=== PATIENT | male | born 1960 | race Caucasian/White ===

== ENCOUNTER 2019-09-14 08:10 | Day surgery (SDC) | payer OTHER ==
[~2019-09-14] VITALS: Ht 175.3 cm; Wt 114.5 kg
[~2019-09-14 08:10] MED LIST: ASPI81CH PO
--- NOTE | 2019-09-14 09:18 | NUR ---
Ambulatory in Day Surgery. History, Chart, Medications and Allergies reviewed before start of procedure. Lungs clear T/O to Auscultation. Patient States Post-Procedure ride home has been arranged. Pre-Op teaching done. Pt verbalizes understanding.
--- NOTE | 2019-09-14 09:59 | NUR ---
09/14/19 0959 Ned Jay History, Chart, Medications and Allergies reviewed before start of procedure.MONITOR INTACT WITH CONTINUOUS PULSE OXIMETRY AND INTERMITTENT BP.3-LEAD EKG REVIEWED WITH PHYSICIAN PRIOR TO START OF PROCEDURE.O2 VIA N/C INTACT THROUGHOUT SEDATION/PROCEDURE. See Anesthesia record.
--- NOTE | 2019-09-14 10:29 | NUR ---
PT REPORT FROM THUY MICHELE RN.
--- NOTE | 2019-09-14 10:55 | NUR ---
Patient up to Ambulate independently. Gait steady. Discharge instructions reviewed with patient. Patient verbalizes understanding. Copy given to patient to take home. Patient States Post-Procedure ride home has been arranged. Discharged via wheelchair to private car for ride home. ALL BELONINGS RETURNED TO PATIENT. PT TAKEN TO [facility] TO SET UP PORTAL.
== END 2019-09-14 22:46 | disposition home or self-care (01) ==
LOC: ORSCMMR 08:10 → ORD 11:15 → ORSCMMR 22:46
PROVIDERS: Internal Medicine Gastroenterology
PROC: 0DB68ZX Excision of Stomach, Via Natural or Artificial Opening Endoscopic, Diagnostic (ICD-10-PCS; principal; 2019-09-14 09:30)
PROC: 0D758ZZ Dilation of Esophagus, Via Natural or Artificial Opening Endoscopic (ICD-10-PCS; principal; 2019-09-14 09:30)
PROC: 0DB98ZX Excision of Duodenum, Via Natural or Artificial Opening Endoscopic, Diagnostic (ICD-10-PCS; principal; 2019-09-14 09:30)
PROC: 0DB58ZX Excision of Esophagus, Via Natural or Artificial Opening Endoscopic, Diagnostic (ICD-10-PCS; principal; 2019-09-14 09:30)
DX: R13.10 Dysphagia, unspecified (principal); K21.9 Gastro-esophageal reflux disease without esophagitis; K44.9 Diaphragmatic hernia without obstruction or gangrene; E66.01 Morbid (severe) obesity due to excess calories; Z68.37 Body mass index [BMI] 37.0-37.9, adult
CPT/HCPCS: 88305; 88342; J2250; J2704; J7120

== ENCOUNTER 2020-06-05 07:42 | Day surgery (SDC) | payer OTHER ==
[~2020-06-05 07:42] MED LIST changes: +HYDCHL25 PO; +LATA.005SO
--- NOTE | 2020-06-05 08:54 | NUR ---
06/05/20 0854 Delia Ca PT WITH GOLD BAND ON LEFT RING FINGER, UNABLE TO REMOVE AT THIS TIME. EXPLAINED TO PATIENT RISKS OF HAVING RING ON, CONSENT SIGNED, QUESTIONS ANSWERED.
== END 2020-06-05 10:32 | disposition home or self-care (01) ==
LOC: ORSCSDS 07:42
PROVIDERS: Ophthalmology
PROC: 080PXZZ Alteration of Left Upper Eyelid, External Approach (ICD-10-PCS; principal; 2020-06-05 09:15)
PROC: 080NXZZ Alteration of Right Upper Eyelid, External Approach (ICD-10-PCS; principal; 2020-06-05 09:15)
DX: H02.831 Dermatochalasis of right upper eyelid (principal); H02.834 Dermatochalasis of left upper eyelid; I10 Essential (primary) hypertension; K21.9 Gastro-esophageal reflux disease without esophagitis; E66.01 Morbid (severe) obesity due to excess calories; Z68.37 Body mass index [BMI] 37.0-37.9, adult; Z79.899 Other long term (current) drug therapy
CPT/HCPCS: A9270; J2704; J7040

== ENCOUNTER 2024-04-23 03:37 | Observation (INO) | payer OTHER ==
[~2024-04-23] VITALS: Ht 177.8 cm; Wt 99.0 kg
[2024-04-23 03:50] LABS: BASOPHILS ABSOLUTE AUTO 0.05 K/mm3 (0.00-0.23); BASOPHILS PERCENT AUTO 1 % (0-2); EOSINOPHILS ABSOLUTE AUTO 0.26 K/mm3 (0.00-0.68); EOSINOPHILS PERCENT AUTO 4 % (0-6); Hematocrit 43.4 % (37.0-53.0); Hemoglobin 14.5 g/dL (13.5-17.5); IMMATURE GRAN ABSOLUTE AUTO 0.01 K/mm3 (0.00-0.10); IMMATURE GRAN PERCENT AUTO 0 % (0-1); LYMPHOCYTES ABSOLUTE AUTO 1.84 K/mm3 (0.84-5.20); LYMPHOCYTES PERCENT AUTO 25 % (21-46); MONOCYTES ABSOLUTE AUTO 0.66 K/mm3 (0.16-1.47); MONOCYTES PERCENT AUTO 9 % (4-13); Mean Corpuscular HGB 30.3 pg (26.0-34.0); Mean Corpuscular HGB Conc 33.4 g/dL (31.5-36.5); Mean Corpuscular Volume 91 fL (80-100); Mean Platelet Volume 9.8 fL (9.1-12.4); NEUTROPHILS ABSOLUTE AUTO 4.63 K/mm3 (1.96-9.15); NEUTROPHILS PERCENT AUTO 62 % (41-73); Platelet Count 198 K/mm3 (150-400); RDW Coefficient Variation 13.1 % (11.7-14.2); RDW Standard Deviation 43.3 fL (35.1-46.3); Red Blood Cell Count 4.78 M/mm3 (4.30-5.90); White Blood Cell Count 7.45 K/mm3 (4.00-11.30)
[2024-04-23 04:11] LABS: Alanine Aminotransfer (ALT/SGP 21 U/L (12-78); Albumin, Blood 3.8 g/dL (3.4-5.0); Albumin/Globulin Ratio 1.2 (0.8-1.8); Alk Phos 84 U/L (50-136); Anion Gap 10 mmol/L (3-11); Aspartate Aminotrans (AST/SGOT 16 U/L (12-37); Bilirubin, Total 0.4 mg/dL (0.1-1.0); Blood Urea Nitrogen 14 mg/dL (8-24); Bun/Creatinine Ratio 10.7 (12.0-20.0); CHOL/HDL RATIO 3.1; CO2, Blood 25 mmol/L (21-32); Calcium, Blood 9.5 mg/dL (8.5-10.1); Chloride, Blood 112 mmol/L (98-108); Cholesterol 127 mg/dL (50-200); Creatinine, Blood 1.31 mg/dL (0.60-1.20); Globulin, Blood 3.3 g/dL (2.2-4.0); Glomerular Filtration Rate 61 (60-); Glucose, Blood 116 mg/dL (70-99); HDL Cholesterol 41 mg/dL (>39); LDL/HDL RATIO 1.8; Low Density Lipoprotein Chol 74 mg/dL (0-110); Potassium, Blood 4.2 mmol/L (3.5-5.5); Sodium, Blood 143 mmol/L (136-145); Total Protein, Blood 7.1 g/dL (6.4-8.2); Triglycerides 61 mg/dL (30-160); Very Low Density Lipoprot Chol 12 mg/dL (6-32)
[2024-04-23] MEDS ORDERED: Aspirin 81 MG TabEC PO ONE (04:50)
[2024-04-23] MEDS ORDERED: FLU VACC TS2024-25(6MOS UP)/PF 45 MCG/0.5 ML SYRINGE IM ONE (05:45)
[2024-04-23] MEDS ORDERED: Ondansetron HCl 2 MG / ML 2ML Vial IV PRN (05:45)
[2024-04-23] MEDS ORDERED: Atorvastatin 40 MG Tab PO SCH (09:00)
[2024-04-23] MEDS ORDERED: Clopidogrel Bisulfate 75 MG Tab PO SCH (09:00)
[2024-04-23] MEDS ORDERED: Aspirin 81 MG Chew PO SCH (09:00)
[2024-04-23 09:15] VITALS: BP 130/87
[2024-04-23] MEDS ORDERED: ROSUVASTATIN CAL5 MG PO (09:29)
--- NOTE | 2024-04-23 13:38 | NUR ---
ADMIT NOTE MR RIVERO WAS ADMITTED FROM THE ER TO MEDICAL FLOOR AT 0910. HE HAS NO NOTICABLE NEUROLOGICAL DEFICITS UPON ARRIVAL. NO ARM DRIFT, NO FACIAL DROOP, EQUAL SHOULDER STRENGTH, EQUAL HAND STRENGTH, EQUAL LEG STRENGTH. HE DENIES ANY VISUAL CHANGES, ANY CHANGE IN SPEACH OR ANY HEADACHE. HE REPORTED THAT EARLIER SYMPTOMS HAVE RESOLVED. STEADY GAIT, NO DIZZYNESS. ON TELEMETRY IN SR. HE LIVES WITH HIS WHO IS AWAY AT THIS TIME, SON LIVES CLOSE BY. HE HASN'T SMKOKED TOBACCO FOR 35 YRS BUT DOES CHEW TOBACCO DAILY, USES 1 CAN EVERY 5 DAYS. HE IS NOT INTERESTED IN QUITTING CURRENTLY. HE DENIES HAVING ANY TOBACCO WITH HIM AND KNOWS THIS IS A TOBACCO FREE FACILITY. HE HAS WALKED WITH PHYSICAL THERAPY AND IS NOW RESTING IN BED.
[2024-04-23] MEDS ORDERED: Nicotine 7 MG PATCH TOP SCH (14:05)
[2024-04-23] MEDS ORDERED: ASPI81CH PO (15:43)
[2024-04-23] MEDS ORDERED: CLOP75 PO (15:43)
[2024-04-23] MEDS ORDERED: Nicoderm Cq1 EACH TOP (15:46)
--- NOTE | 2024-04-23 17:42 | NUR ---
DISCHARGE NOTE MR RIVERO WAS DISCHARGED HOME, AMBULATORY WITH HIS SON. HE VERBALISED UNDERSTANDING OF WRITTEN AND VERBAL DISCHARGE INSTRUCTIONS. NO NEW QUESTIONS OR CONCERNS PRIOR TO DISCHARGE. NO NEURO CHANGES OR HEADACHE DURING ADMISSION. PIV AND TELEMETRY REMOVED BY DRAW FIRE OPERATOR PRIOR TO DISCHARGE.
[2024-04-24] MEDS ORDERED: Aspirin 81 MG Chew PO SCH (09:00)
== END 2024-04-23 16:25 | disposition home or self-care (01) ==
LOC: ER 03:37 → ERHOLD 05:53 → MEDS 09:12
PROVIDERS: Emergency Medicine; ADMIT Student in an Organized Health Care Education/Training Program
DX: R53.1 Weakness (principal); Z87.891 Personal history of nicotine dependence; Z88.0 Allergy status to penicillin
CPT/HCPCS: 70450; 70496; 70498; 80053; 80061; 85025; 93005; 93010; 93306; 97112; 97161; 99285-25; A9270; G0378; Q9967

== ENCOUNTER 2025-03-29 13:48 | Day surgery (SDC) | payer MEDICARE, OTHER ==
[~2025-03-29] VITALS: Ht 175.3 cm; Wt 114.6 kg
[~2025-03-29 13:48] MED LIST changes: +CLOP75 PO; +Nicoderm Cq1 EACH TOP; +ROSUVASTATIN CAL5 MG PO; +XALATAN2.5 ML RIGHTEYE
[2025-03-29 14:16] VITALS: BP 147/83
--- NOTE | 2025-03-29 14:25 | NUR ---
Patient confirms NPO status and agrees with scheduled surgery. Patient states colon prep results clear. Pre-Op teaching done. Pt verbalizes understanding.
--- NOTE | 2025-03-29 15:28 | NUR ---
03/29/25 15[address] Betty Ramírez WITH DR. CARIAS, SEE ANESTHESIA RECORDS.
[2025-03-29 16:59] VITALS: BP 120/65
--- NOTE | 2025-03-29 17:05 | NUR ---
Patient States Post-Procedure ride home has been arranged. Discharged via wheelchair to private car for ride home. Discharge instructions reviewed with patient. Patient verbalizes understanding. Copy given to patient to take home.
== END 2025-03-29 23:00 | disposition home or self-care (01) ==
LOC: ORSCMMR 13:48 → ORD 15:30 → ORSCMMR 23:00
DX: Z12.11 Encounter for screening for malignant neoplasm of colon (principal); K63.5 Polyp of colon; K57.30 Diverticulosis of large intestine without perforation or abscess without bleeding; Z86.0101 Personal history of adenomatous and serrated colon polyps; G47.33 Obstructive sleep apnea (adult) (pediatric); N18.30 Chronic kidney disease, stage 3 unspecified; E78.5 Hyperlipidemia, unspecified; Z87.891 Personal history of nicotine dependence; Z86.73 Personal history of transient ischemic attack (TIA), and cerebral infarction without residual deficits; E66.9 Obesity, unspecified; Z68.37 Body mass index [BMI] 37.0-37.9, adult; Z79.82 Long term (current) use of aspirin; Z79.899 Other long term (current) drug therapy
CPT/HCPCS: 88305; J2704; J7120